=== PATIENT | female | born 1980 | race Caucasian/White ===

== ENCOUNTER 2016-12-23 15:19 | Emergency (ER) | payer BC ==
[2016-12-23 15:40] VITALS: BP 138/76
--- NOTE | 2016-12-23 17:08 | UC ---
Ear Complaint HPI - HPI Summary HPI Summary: ONE WEEK OF LEFT EAR PAIN AND FULLNESS, LAST TWO DAYS HAS BEGUN HAVING RIGHT EAR PAIN. NO FEVER. HISTORY OF [employer] IN HIGH S[employer]OL. - History of Current Complaint Chief Complaint: UCEar Stated Complaint: EARS PLUGGED Time Seen by Provider: 12/23/16 15:48 Hx Obtained From: Patient Hx Last Menstrual Period: 12/22/16 Onset/Duration: Sudden Onset, Lasting Weeks Severity Initially: Moderate Severity Currently: Moderate Pain Intensity: 0 Pain Scale Used: 0-10 Numeric - Allergies/Home Medications Allergies/Adverse Reactions: Allergies Allergy/AdvReac Type Severity Reaction Status Date / Time No Known Allergies Allergy Verified 12/23/16 15:33 PMH/Surg Hx/FS Hx/Imm Hx Previously Healthy: Yes Endocrine History Of: Denies: Diabetes, Thyroid Disease, Hyperthyroidism, Hypothyroidism, Dyslipidemia Cardiovascular History Of: Denies: Cardiac Disorders, Hypertension, Pacemaker/ICD, Myocardial Infarction , Congestive Heart Failure, Atrial Fibrillation, Deep Vein Thrombosis, Bleeding Disorders Respiratory History Of: Reports: Asthma Denies: COPD, Bronchitis, Pneumonia, Pulmonary Embolism GI/ History Of: Denies: Gastroesophageal Reflux, Ulcer, Gastrointestinal Bleed, Gall Bladder Disease, Kidney Stones, Diverticulitis, Renal Disease, Urosepsis Neurological History Of: Denies: TIA, CVA, Dementia, Seizures, Migraine Psychological History Of: Denies: Anxiety, Depression, Bipolar Disorder, Schizophrenia, Post Traumatic Stress Disorder Cancer History Of: Denies: Lung Cancer, Colorectal Cancer, Breast Cancer, Prostate Cancer, Cervical Cancer Other History Of: Negative For: HIV, Hepatitis B, Hepatitis C - Surgical History Surgical History: Yes Surgery Procedure, Year, and Place: Cholecystectomy, 1999, [place]; T&A, 1988, [place] - Family History Known Family History: Positive: None - Social History Occupation: Employed Full-time Lives: With Family Alcohol Use: Weekly Substance Use Type: None Smoking Status (MU): Current Some Day Smoker Type: Jacque Length of Time of Smoking/Using Tobacco: 22 Years Have You Smoked in the Last Year: Yes - Immunization History Most Recent Influenza Vaccination: 07/2016 Review of Systems Constitutional: Negative Skin: Negative Eyes: Negative ENT: Ear Ache, Nasal Discharge Respiratory: Negative Cardiovascular: Negative Gastrointestinal: Negative Genitourinary: Negative Motor: Negative Neurovascular: Negative Musculoskeletal: Negative Neurological: Negative Psychological: Negative All Other Systems Reviewed And Are Negative: Yes Physical Exam Triage Information Reviewed: Yes Appearance: Well-Appearing, No Pain Distress, Well-Nourished Vital Signs: Initial Vital Signs Temp 97.5 F 12/23/16 15:36 Pulse 80 12/23/16 15:36 Resp 16 12/23/16 15:36 BP 138/76 12/23/16 15:36 Pulse Ox 100 12/23/16 15:36 ENT: Positive: Nasal congestion, TM bulging, TM dull, Other: - LEFT EDEMA ERRETHEMA EAC Dental Exam: Normal Neck exam: Normal Respiratory Exam: Normal Respiratory: Positive: Chest non-tender, Lungs clear, Normal breath sounds, No respiratory distress Cardiovascular Exam: Normal Cardiovascular: Positive: RRR, No Murmur, Pulses Normal Abdominal Exam: Normal Abdomen Description: Positive: Nontender, No Organomegaly Musculoskeletal Exam: Normal Neurological Exam: Normal Psychological Exam: Normal Skin Exam: Normal Ear Complaint Course/Dx - Differential Dx/Diagnosis Differential Diagnosis/HQI/PQRI: Otitis Externa, Otitis Media, URI Provider Diagnoses: SINUSITIS. RIGHT OTITIS MEDIA. LEFT OTITIS EXTERNA Discharge - Discharge Plan Condition: Stable Disposition: HOME Prescriptions: Amoxicillin/Clavulanate TAB* [Augmentin TAB 875*] 875 mg PO BID #20 tab Neomyc/Polym/HC 1% OTIC SUSP* [Cortisporin Otic Susp 1%*] 4 drop LEFT EAR TID # 1 btl Patient Education Materials: Otitis Externa (ED), Otitis Media (ED) Referrals: Huber Vogel MD [Primary Care Provider] -
== END 2016-12-23 16:04 | disposition home or self-care (01) ==
LOC: UCCORT 15:19
DX: J32.9 Chronic sinusitis, unspecified (principal); H60.92 Unspecified otitis externa, left ear; H66.91 Otitis media, unspecified, right ear; Z72.0 Tobacco use
CPT/HCPCS: 99211; G0463

== ENCOUNTER 2018-06-25 07:52 | Emergency (ER) | payer BC ==
[2018-06-25 08:06] VITALS: BP 151/91
--- NOTE | 2018-06-25 08:24 | UC ---
Upper Extremity HPI - HPI Summary HPI Summary: 37 yo female fell against door jam 2 nights ago, hurt hand against it. Still painful. Fell to ground on knee but minimal knee pain. Here b/c hand still is swollen and tender. No prox pain / tenderness. Feels like fingers asleep 4/ 5th. No loc. PT is R handed - History of Current Complaint Chief Complaint: UCTrauma Stated Complaint: SP FALL-RT HAND INJURY Time Seen by Provider: 06/25/18 08:24 Hx Obtained From: Patient Hx Last Menstrual Period: current Pain Intensity: 4 - Allergies/Home Medications Allergies/Adverse Reactions: Allergies Allergy/AdvReac Type Severity Reaction Status Date / Time No Known Allergies Allergy Verified 06/25/18 08:06 Home Medications: Home Medications NK [No Home Medications Reported] 06/25/18 [History Confirmed 06/25/18] PMH/Surg Hx/FS Hx/Imm Hx Previously Healthy: Yes Other History Of: Negative For: HIV, Hepatitis B, Hepatitis C - Surgical History Surgical History: Yes Surgery Procedure, Year, and Place: Cholecystectomy, 1999, [place]; T&A, 1988, [place] - Family History Known Family History: Positive: None - Social History Alcohol Use: Weekly Substance Use Type: None Smoking Status (MU): Current Some Day Smoker Type: eCigarettes Length of Time of Smoking/Using Tobacco: 22 Years Have You Smoked in the Last Year: Yes - Immunization History Most Recent Influenza Vaccination: 07/2016 Review of Systems Constitutional: Negative Skin: Negative Eyes: Negative ENT: Negative Respiratory: Negative Cardiovascular: Negative Gastrointestinal: Negative Genitourinary: Negative Motor: Other - see hpi Neurovascular: Other - see hpi Musculoskeletal: Other: - see hpi Neurological: Negative Psychological: Negative Is Patient Immunocompromised?: No All Other Systems Reviewed And Are Negative: Yes Physical Exam Triage Information Reviewed: Yes Appearance: Well-Appearing, Well-Nourished Vital Signs: Initial Vital Signs Temp 97.2 F 06/25/18 08:01 Pulse 79 06/25/18 08:01 Resp 18 06/25/18 08:01 BP 151/91 06/25/18 08:01 Pulse Ox 100 06/25/18 08:01 Vital Signs Reviewed: Yes Eye Exam: Normal ENT Exam: Normal Neck exam: Normal - nontender, no c/o Respiratory Exam: Normal - no tachpynea, no dyspnea Cardiovascular Exam: Normal - hr normal, nondiaphoretic. CR < 5 sec x 5 digits. Abdominal Exam: Normal - no c/o, sitting up Musculoskeletal Exam: Other - R hand + swelling, tender lat hand rosario mid 4th < 5th MT region. edema. No discoloration. Distal sens LT present. "ok 1st and index" ok, but unable to place thumb to 5th ditig d/t pain. R / pp good. Wrist nontender, from. Neurological Exam: Normal Psychological Exam: Normal Skin Exam: Normal Upper Extremity Course/Dx - Course Course Of Treatment: xray R hand - sts, no fx seen. see [facility] report. Reviewed with pt. Splint for comfort. Declines sling. Questions as posed answered to the best of my abilility - Differential Dx/Diagnosis Provider Diagnoses: Right hand contusion. Right hand sprain Discharge - Sign-Out/Discharge Documenting (check all that apply): Patient Departure All imaging exams completed and their final reports reviewed: Yes - Discharge Plan Condition: Stable Disposition: HOME Patient Education Materials: Contusion in Adults (ED), Hand Sprain (ED) Referrals: Huber Vogel MD [Primary Care Provider] - Additional Instructions: Splint as needed for comfort. ELEVATE your hand as much as possible. Seek medical attention for worse or new problems. Consider over the counter anti-inflammatory medication including alleve, ibuprofen (per packaging instructions). - Billing Disposition and Condition Condition: STABLE Disposition: Home
--- NOTE | 2018-06-25 08:53 | RAD ---
INDICATION: Right hand injury. TECHNIQUE: 4 views of the right hand were obtained. FINDINGS: There is dorsal and medial soft tissue swelling. The bones are normal alignment. No fracture is seen. Joint spaces appear maintained. IMPRESSION: SOFT TISSUE SWELLING, NO FRACTURE IS SEEN. IF THE PATIENT'S SYMPTOMS PERSIST RECOMMEND FOLLOW-UP IMAGING.
== END 2018-06-25 09:23 | disposition home or self-care (01) ==
LOC: UCCORT 07:52
DX: S60.221A Contusion of right hand, initial encounter (principal); W19.XXXA Unspecified fall, initial encounter; Y93.9 Activity, unspecified; Y92.9 Unspecified place or not applicable; F17.210 Nicotine dependence, cigarettes, uncomplicated
CPT/HCPCS: 99212; G0463